=== PATIENT | male | born 1970 | race Caucasian/White ===

== ENCOUNTER 2016-12-26 18:30 | Emergency (ER) | payer SELFPAY ==
[~2016-12-26] VITALS: Ht 180.3 cm; Wt 129.3 kg
[2016-12-26] MEDS ORDERED: AMOXICILLIN875 MG PO (19:36)
[2016-12-26] MEDS ORDERED: FLOXIN 0.3%5 ML/BOT OT (19:36)
--- NOTE | 2016-12-26 19:38 | Emergency Room Report ---
History of Present Illness Time Seen by MD Odell Presenting Problem in Triage Pt arrived:Walked Presenting Problem:PT STATES HIS RIGHT EAR HURTS, COLD SYMPTOMS FOR 1 WEEK. STATES HE HAD BLOOD DRAINING FROM HIS EAR EARLIER TODAY. Onset of symptoms date/time:/ or onset unknown for:MEDICAL HX UNKNOWN Treatment Prior to Arrival: [employer] [facility] Provided by: Sepsis Risk Assessment: Temp: 97.5 B/P: 164/102 MAP: 153 Pulse: 74 Resp: 20 Recent fever? N Clinical Suspician of Infection? N Mental Status: 1 - Regular (Normal Baseline) Sepsis Risk:Low Sepsis Risk Have you (or family members/close friends) recently traveled outside the [place]? N If Yes, where/when: Have you had exposure to infectious disease within the past month? TB? Other? Specify: Source patient Exam Limitations no limitations Comment Patient presents to ER with complaints of right ear pain for one week. He tried using OTC wax softener and rinsing the canal with hydrogen peroxide and saw blood in the liquid that drained from the canal. He has had cold symptoms for the past week with chest congestion, cough, nasal and sinus congestion, PND, and runny nose. He denies taking any medications. He does not have a PCP. His blood pressure is elevated upon exam and he reports that he has been told this in the past. Timing/Duration week (one) Severity mild Associated Symptoms cough, sore throat ALLERGIES Coded Allergies: aspirin (Intermediate, 12/26/16) History Medical History General More? Yes Additional hx: MRSA Immunization Hx DT/Tetanus 5-10 Years Ago Surgical Hx Previous Surgery?Y RIGHT LEG Dental Surgery Social History Smoking Hx Smoker: Current Every Day Smoker Tobacco: Yes Type Cigarettes Packs/day 1 1/2 - 2 Packs Alcohol Alcohol: No Review of Systems All Other Systems Reviewed and Negative Constitutional denies chills, denies fever ENT ear pain, ear discharge, nose discharge, nose congestion, throat pain. Respiratory cough Physical Exam Vital Signs Vital Signs Date Time Temp Pulse Resp B/P Pulse O2 O2 Flow FiO2 Ox Delivery Rate 12/26 1947 97.5 74 20 164/102 95 12/26 1853 98.2 88 20 209/125 98 General Appearance normal appearance, WD/WN, no apparent distress Eye Exam - bilateral eye normal exam, bilateral eye PERRL, bilateral eye EOMI Ear, Nose, Throat hearing grossly normal, abnormal TM (R), sinus pain/drainage, nasal congestion, right TM initially not visualized, after lavage, right TM bulging beefy red Neck normal inspection, non-tender, supple, full range of motion Respiratory Status Yes: trachea midline, chest symmetrical, non tender chest. No: respiratory distress. Lung Sounds bilateral: normal breath sounds, lungs clear. 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 No Departure Departure Time of Disposition 1929 Disposition DC Home or Self Care(routine) Clinical Impression Primary Impression: Right acute otitis media Secondary Impressions: Cerumen impaction Qualifiers: Laterality: right Qualified Code: H61.21 - Impacted cerumen, right ear Right otitis externa Qualifiers: Otitis externa type: diffuse Chronicity: acute Qualified Code: H60.311 - Diffuse otitis externa, right ear Condition STABLE Patient Instructions DI for Otitis Externa, DI for Otitis Media (Middle Ear Infection)-Child Additional Instructions Patient given list of providers accepting new patients. Advised to establish with PCP to F/U on high blood pressure. Finish antibiotics as directed if ear symptoms persist will need to see ENT. Discharge Counseling Counseled pt/family regarding diagnosis, medications/RX, home care, follow up needs Prescriptions Current Visit Scripts AMOXICILLIN (Amoxicillin 875MG Tab) 875 MG PO BID 10 Days OFLOXACIN (Floxin 0.3% Otic Solution 5ML) 10 DROP OT BID 7 Days ED Critical Care Critical Care No Comments Patient given list of providers accepting new patients. Advised to establish with PCP to F/U on high blood pressure. Finish antibiotics as directed if ear symptoms persist will need to see ENT. at 202
[2016-12-26 19:48] VITALS: BP 164/102
== END 2016-12-26 19:49 | disposition home or self-care (01) ==
LOC: ER 18:30
DX: H66.91 Otitis media, unspecified, right ear (principal); H61.21 Impacted cerumen, right ear; H60.311 Diffuse otitis externa, right ear; Z72.0 Tobacco use